=== PATIENT | male | born 1950 | race Caucasian/White ===

== ENCOUNTER 2018-06-03 08:31 | Emergency (ER) | payer BC ==
--- NOTE | 2018-06-03 08:32 | EDM.PDOC ---
ED HPI GENERAL MEDICAL PROBLEM - General Chief Complaint: Neurological Problem Stated Complaint: AMBULANCE Time Seen by Provider: 06/03/18 08:32 Source of Information: Reports: EMS, EMS Notes Reviewed, Family, RN, RN Notes Reviewed History Limitations: Reports: Altered Mental Status, Combative/Threatening - History of Present Illness INITIAL COMMENTS - FREE TEXT/NARRATIVE: Pt to ER per [facility] with c/o seizure. present shortly after ambulance arrival. She states the patient has severely progressed dementia/alzheimers. States she takes care of him at home, staff in the home at times. Has become more agitated and combative recently. Today was up, had his medications, began to eat breakfast and had what she reports as a seizure. Denies any history of seizures in the past. Denies any recent illness. has paper documentation of DNR/DNI. requests no CT of head be done, no invasive testing, other than labs. Family reported lethargy and "post ictal", EMS also reported that upon arrival to the home. Upon arrival to the ER patient is alert, combative. Onset: Today, Sudden - Related Data Allergies Allergy/AdvReac Type Severity Reaction Status Date / Time No Known Allergies Allergy Verified 06/03/18 08:50 Home Meds: Home Meds Escitalopram Oxalate 20 mg PO DAILY 06/03/18 [History] Multivitamin [Multi-Day Vitamins] 1 tab PO DAILY 06/03/18 [History] QUEtiapine [SEROquel] 12.5 mg PO BID 06/03/18 [History] ED ROS GENERAL - Review of Systems Review Of Systems: ROS reveals no pertinent complaints other than HPI. - Physical Exam Exam: See Below Exam Limited By: Combative/Threatening General Appearance: Alert, Anxious, Moderate Distress Eye Exam: Bilateral Eye: EOMI, Normal Inspection Ears: Normal External Exam, Hearing Grossly Normal Nose: Normal Inspection Throat/Mouth: Normal Inspection, Normal Voice, No Airway Compromise Head Exam: Atraumatic, Normocephalic Neck: Normal Inspection, Supple, Non-Tender, Full Range of Motion Respiratory/Chest: No Respiratory Distress, Decreased Breath Sounds, Crackles ( throughout) Cardiovascular: Normal Peripheral Pulses, Regular Rate, Rhythm, No Edema, No Gallop, No JVD, No Murmur, No Rub GI/Abdominal: Normal Bowel Sounds, Soft, Non-Tender, No Organomegaly, No Distention (Male) Exam: Deferred Rectal (Males) Exam: Deferred Neuro Exam (Abbreviated): Alert, Confused, Disoriented, Other (demential/ alzheimers) Back Exam: Normal Inspection, Full Range of Motion Extremities: Normal Inspection, Normal Range of Motion, Non-Tender, No Pedal Edema, Normal Capillary Refill Psychiatric: Anxious Skin Exam: Warm, Dry, Intact, Normal Color, No Rash Course - Vital Signs Last Recorded V/S: Last Vital Signs Temp 95.9 F 06/03/18 08:31 Pulse 88 06/03/18 08:31 Resp 22 H 06/03/18 08:31 BP Pulse Ox 95 06/03/18 08:31 - Orders/Labs/Meds Orders: Active Orders 24 hr Category Date Time Status Chest 1V Frontal [CR] Stat Exams 06/03/18 09:17 Stop Req Sodium Chloride 0.9% [Normal Saline] 1,000 ml Med 06/03/18 10:02 Active IV .BOLUS Medication Orders Sodium Chloride (Normal Saline) 1,000 mls @ 999 mls/hr IV .BOLUS ONE Stop: 06/03/18 11:02 Labs: Laboratory Tests 06/03/18 06/03/18 Range/Units 08:54 08:54 WBC 8.9 (5.0-10.0) 10^3/uL RBC 5.21 (4.6-6.2) 10^6/uL Hgb 15.8 (14.0-18.0) g/dL Hct 47.3 (40.0-54.0) % MCV 90.8 (80-100) fL MCH 30.3 (27.0-34.0) pg MCHC 33.4 (33.0-35.0) g/dL Plt Count 204 (150-450) 10^3/uL Neut % (Auto) 68.2 (42.2-75.2) % Lymph % (Auto) 21.6 (20.5-50.1) % [place] % (Auto) 8.9 H (2-8) % Eos % (Auto) 1.1 (1.0-3.0) % Baso % (Auto) 0.2 (0.0-1.0) % Sodium 137 (135-145) mmol/L Potassium 4.3 (3.6-5.0) mmol/L Chloride 103 (101-111) mmol/L Carbon Dioxide 21.0 (21.0-31.0) mmol/L Anion Gap 17.3 BUN 22 H (7-18) mg/dL Creatinine 1.4 H (0.6-1.3) mg/dL Est Cr Clr Drug Dosing 58.66 mL/min Estimated GFR (MDRD) 51 BUN/Creatinine Ratio 15.71 Glucose 165 H (74-105) mg/dL Calcium 9.1 (8.4-10.2) mg/dl Total Bilirubin 1.2 H (0.2-1.0) mg/dL AST 26 (10-42) IU/L ALT 19 (10-60) IU/L Alkaline Phosphatase 64 (42-121) IU/L Total Protein 6.8 (6.7-8.2) g/dl Albumin 4.1 (3.2-5.5) g/dl Globulin 2.7 Albumin/Globulin Ratio 1.52 Meds: Medications Generic Name Dose Route Start Last Admin Trade Name Freq PRN Reason Stop Dose Admin Sodium Chloride 1,000 mls @ 999 mls/hr 06/03/18 10:02 Normal Saline IV 06/03/18 11:02 .BOLUS ONE Discontinued Medications Generic Name Dose Route Start Last Admin Trade Name Freq PRN Reason Stop Dose Admin Acetaminophen 650 mg 06/03/18 09:28 06/03/18 09:32 Tylenol PO 06/03/18 09:29 650 mg NOW ONE Administration - Radiology Interpretation Free Text/Narrative:: Chest xray: See rad report - Re-Assessments/Exams Free Text/Narrative Re-Assessment/Exam: 06/03/18 09:25 Discussed the possibility of aspiration pneumonia with the . She states he did have food in his mouth when the event began. We discussed the likelihood of seeing an aspiration pneumonia this early is unlikely. She agrees and understands. She states she is comfortable watching him at home for signs of pneumonia or illness and taking him to the clinic for an xray if necessary. Patient is very agitated at this time and an xray may be difficult. Patient is rubbing his head and moaning, which states is not normal. also states he has not had any urinary symptoms. She states she would not like him cathed for the urine due to his already severe agitation. She will monitor and again take him to the clinic if necessary. We will monitor his labs today for infection, electrolyte imbalance, etc. If all is WNL, the patient will be discharged home in the 's care and she will monitor. agrees with this plan and states understanding. Departure - Departure Time of Disposition: 10:25 Disposition: Home, Self-Care 01 Condition: Fair Clinical Impression: Witnessed seizure-like activity Alzheimer's dementia Qualifiers: Alzheimer's disease onset: unspecified onset Dementia behavioral disturbance: with behavioral disturbance Qualified Code(s): G30.9 - Alzheimer's disease, unspecified; F02.81 - Dementia in other diseases classified elsewhere with behavioral disturbance - Discharge Information *PRESCRIPTION DRUG MONITORING PROGRAM REVIEWED*: No *COPY OF PRESCRIPTION DRUG MONITORING REPORT IN PATIENT MEGAN: No Instructions: Seizure, Adult, [id number] Forms: ED Department Discharge Additional Instructions: Monitor for signs of aspiration pneumonia, urinary tract infection, further seizure activity Encourage fluids Follow up with your primary care facility - My Orders Last 24 Hours: My Active Orders 06/03/18 09:17 Chest 1V Frontal [CR] Stat 06/03/18 10:02 Sodium Chloride 0.9% [Normal Saline] 1,000 ml IV .BOLUS - Assessment/Plan Last 24 Hours: My Active Orders 06/03/18 09:17 Chest 1V Frontal [CR] Stat 06/03/18 10:02 Sodium Chloride 0.9% [Normal Saline] 1,000 ml IV .BOLUS
[2018-06-03] MEDS ORDERED: Acetaminophen 325 MG Tab PO ONE (09:28)
[2018-06-03 09:42] LABS: ANION GAP 17.3
[2018-06-03] MEDS ORDERED: Sodium Chloride 0.9% 1,000 ML IV ONE (10:02)
== END 2018-06-03 10:39 | disposition home or self-care (01) ==
LOC: DL.ED 08:31
DX: R56.9 Unspecified convulsions (principal); G30.9 Alzheimer's disease, unspecified; F02.81 Dementia in other diseases classified elsewhere, unspecified severity, with behavioral disturbance; Z79.899 Other long term (current) drug therapy
CPT/HCPCS: 36415; 80053; 85025; 99285; A9270